=== PATIENT | female | born 1950 | race Caucasian/White ===

== ENCOUNTER 2024-11-14 08:37 | Outpatient (CLI) | payer MEDICARE, SELFPAY ==
--- NOTE | ~2024-11-14 | MR_ITS ---
EXAMINATION: MR lumbar spine wo con DATE: 11/14/2024 09:23 INDICATION: Low back pain and frequent falls TECHNIQUE: Magnetic resonance imaging (MRI) of the lumbar spine was performed without intravenous con trast. Sequences included sagittal T2-weighted FSE, sagittal T2-weighted FS FSE, sagittal T1-weighted FSE, and axial T2-weighted FSE. COMPARISON: None FINDINGS: Alignment is normal. A degree lumbar levocurvature. Sagittal alignment is normal. There is chronic ap pearing mild likely physiologic anterior wedging at T12 and L1. Small nodes along the superior endpla te of T12 and inferior endplate of L4. T1 hyperintense hemangioma at T11. Fibrofatty degenerative end plate changes anteriorly at T10-T11. Marrow signal is otherwise unremarkable. Moderate to severe disc height loss at L4-L5. Moderate disc height loss at T10-T11, L2-L3 and L3-L4 and mild disc height los s at L1-L2. The conus medullaris terminates at L1. There is normal signal in the caudal spinal cord. 1 cm T2 hyperintense cyst at the posterior mid left kidney. Paravertebral soft tissues are unremarkab le. The following disc levels are specifically discussed: T12-L1: Disc is mildly bulging. There is mild bilateral facet joint osteoarthritis. There is no neura l foraminal stenosis. There is no central canal stenosis. L1-L2: Disc is bulging There is mild bilateral facet joint osteoarthritis. There is moderate right an d mild left neural foraminal stenosis. There is mild central canal stenosis. L2-L3: Disc is bulging with annular fissure. There is mild left and moderate right facet joint osteoa rthritis. There is moderate left and moderate right neural foraminal stenosis. There is mild central canal stenosis. L3-L4: Disc is bulging. There is mild left and severe right facet joint osteoarthritis. There is mild bilateral neural foraminal stenosis. There is mild central canal stenosis. L4-L5: Disc is bulging with superimposed left paracentral annular fissure and disc extrusion with dis c material extending a few millimeters cephalad and caudal to the level of the endplates. There is mi ld left and severe right facet joint osteoarthritis. There is moderate bilateral neural foraminal lisa nosis. There is mild central canal stenosis. The disc extrusion narrows the left lateral recess and e xerts mass effect upon the traversing left L5 nerve root. L5-S1: Disc is mildly bulging. There is severe bilateral facet joint osteoarthritis. There is mild le ft and minimal right neural foraminal stenosis. There is no central canal stenosis. IMPRESSION: 1. Moderate to severe lumbar spondylosis. Reviewed, dictated and finalized at location B.
--- NOTE | ~2024-11-14 | MR_ITS ---
EXAMINATION: MR brain/brain stem wo/w con DATE: 11/14/2024 09:44 INDICATION: Frequent falls and vertigo TECHNIQUE: Magnetic resonance imaging (MRI) of the brain and brainstem was performed without and with 20 mL ProHance intravenous contrast. Sequences included sagittal and axial T1-weighted SE, axial dif fusion-weighted FS SE, axial T2*-weighted GRE, axial T2-weighted FLAIR, and axial T2-weighted FSE. Po stcontrast axial and coronal T1-weighted SE was obtained. Apparent diffusion coefficient (ADC) maps w ere created. COMPARISON: None. FINDINGS: There are no areas of restricted diffusion to suggest acute infarction. No intracranial hemorrhage or abnormal intracranial mass lesion. There are scattered areas of nonspecific increased T2-weighted si gnal intensity in the cerebral white matter, predominantly involving the deep and periventricular whi te matter. There are no intraparenchymal signal abnormalities seen on the other pulse sequences. The ventricles are symmetric and normal in size. There are no abnormal extra-axial fluid collections. Marco w voids are seen in the cerebral arteries on the T2-weighted sequences consistent with their expected patency. Mild mucosal thickening bilateral ethmoid sinuses. Visualized orbits and soft tissues are u nremarkable. There are no areas of abnormal enhancement on the post contrast images. IMPRESSION: 1. Moderate amount of scattered nonspecific cerebral white matter T2 hyperintensity consistent with c hronic small vessel ischemic disease. No acute intracranial process no abnormally enhancing brain les ions. Reviewed, dictated and finalized at location B. IMPRESSION: 1. Moderate amount of scattered nonspecific cerebral white matter T2 hyperinten sity consistent with chronic small vessel ischemic disease. No acute intracrani al process no abnormally enhancing brain lesions.
== END 2024-11-14 08:38 | disposition home or self-care (01) ==
LOC: MICIMG 08:44
PROVIDERS: PCP Internal Medicine; Visit Provider Nurse Practitioner
DX: R29.6 Repeated falls (principal); M47.896 Other spondylosis, lumbar region; R90.82 White matter disease, unspecified
CPT/HCPCS: 70553; 72148; A9579

== ENCOUNTER 2025-01-23 09:37 | Outpatient (CLI) | payer MEDICARE, SELFPAY ==
--- NOTE | ~2025-01-23 | MR_ITS ---
MRI of the thoracic spine Clinical History: Frequent falls Technique: Axial T2-weighted and gradient images, and sagittal T1-weighted, T2-weighted, and STIR johnathan ges were acquired. Following intravenous administration of 20 cc MultiHance gadolinium, T1-weighted f at-sat imaging was performed in the axial and sagittal planes. Findings: There is mild chronic compression deformity of T8 with mild loss of height but no marrow ed kathleen. No other fracture or subluxation seen. No suspicious bone marrow signal abnormality seen. There is a small intraosseous hemangioma at T11. No significant disc bulge or herniation seen at any thoracic level. No spinal canal stenosis or cord compression identified in thoracic spine. There is moderate bilateral neural foraminal narrowing at T 10-T11. Remaining neural foramina appear preserved throughout the thoracic spine. There is minimal focal prominence of the central canal of the spinal cord at the T11 level. No other abnormal signal seen in the spinal cord. Paravertebral soft tissues are unremarkable. Impression: Mild chronic compression deformity of T8. Minimal prominence of the central canal spinal cord at T11 level. Moderate bilateral neural foraminal narrowing at T10-T11. Reviewed, dictated and finalized at [facility]. Impression: Mild chronic compression deformity of T8. Minimal prominence of the central canal spinal cord at T11 level. Moderate bilateral neural foraminal narrowing at T10-T11.
== END 2025-01-23 09:38 | disposition home or self-care (01) ==
LOC: MICIMG 09:38
PROVIDERS: PCP Internal Medicine; Visit Provider Internal Medicine
DX: M48.04 Spinal stenosis, thoracic region (principal); M43.8X4 Other specified deforming dorsopathies, thoracic region; R29.6 Repeated falls
CPT/HCPCS: 72157; A9577